=== PATIENT | female | born 1955 | race Caucasian/White ===

== ENCOUNTER 2022-03-02 11:01 | Inpatient (IN) | payer MEDICARE, BC ==
[~2022-03-02] VITALS: Ht 170.2 cm; Wt 76.2 kg
[~2022-03-02 11:01] MED LIST: ENAL5TAB85 PO; LEVO25TA50 PO
[2022-03-02] MEDS ORDERED: iohexol 350MG/ML 100ml bottle IV ONE (11:53)
--- NOTE | 2022-03-02 12:05 | NUR ---
PT TO CT
[2022-03-02 12:06] LABS: BASOPHILS # (AUTO) 0.1 X10'3 (0-0.2); BASOPHILS % (AUTO) 0.7 % (0-1); EOSINOPHILS # (AUTO) 0.1 X10'3 (0-0.9); EOSINOPHILS % (AUTO) 0.9 % (0-6); HEMATOCRIT 43.6 % (35.0-45.0); HEMOGLOBIN 14.8 g/dl (12.0-16.0); LYMPHOCYTES # (AUTO) 2.1 X10'3 (1.1-4.8); LYMPHOCYTES % (AUTO) 24.9 % (21-51); MEAN CORPUSCULAR HEMOGLOBIN 32.5 PG (27.0-31.0); MEAN CORPUSCULAR VOLUME 95.4 FL (78-98); MEAN PLATELET VOLUME 7.3 FL (7.4-10.4); MONOCYTES # (AUTO) 0.5 X10'3 (0-0.9); MONOCYTES % (AUTO) 6.4 % (2-12); NEUTROPHILS # (AUTO) 5.5 X10'3 (1.8-7.7); NEUTROPHILS % (AUTO) 67.1 % (42-75); PLATELET COUNT 205 X10'3 (140-440); RED BLOOD COUNT 4.57 X10'6 (4.20-5.60); RED CELL DISTRIBUTION WIDTH 13.1 % (11.5-14.5); WHITE BLOOD COUNT 8.3 X10'3 (4.5-11.0)
[2022-03-02] MEDS ORDERED: aspirin 81mg tab.chew PO ONE (12:10)
[2022-03-02 12:16] LABS: UA COLLECTION TYPE CLN CATCH MIDSTREAM
[2022-03-02 12:17] LABS: CLARITY,URINE CLEAR (Clear); COLOR,URINE YELLOW (Yellow); GLUCOSE, URINE NEGATIVE (Neg); KETONES,URINE NEGATIVE (Neg); LEUKOCYTE ESTERASE ,URINE NEGATIVE (Neg); NITRITES, URINE NEGATIVE (Neg); OCCULT BLOOD,URINE TRACE-INTACT (Neg); PROTEIN,URINE NEGATIVE (Neg); UROBILINOGEN,URINE 0.2 E.U/dL (0.2-1.0)
--- NOTE | 2022-03-02 12:18 | NUR ---
BACK FROM CT
[2022-03-02 12:19] LABS: URINE AMPHETAMINE SCREEN NEGATIVE (Neg); URINE BARBITUATE SCREEN NEGATIVE (Neg); URINE BENZODIAZEPINES SCREEN NEGATIVE (Neg); URINE CANNABINOID SCREEN POSITIVE (Neg); URINE COCAINE SCREEN NEGATIVE (Neg); URINE METHADONE SCREEN NEGATIVE (Neg); URINE OPIATE SCREEN NEGATIVE (Neg); URINE PHENCYCLIDINE SCREEN NEGATIVE (Neg)
--- NOTE | 2022-03-02 12:24 | NUR ---
PT BACK FROM XRAY
[2022-03-02 12:27] LABS: ALANINE AMINOTRANSFERASE 29 U/L (12-78); ALBUMIN 3.9 G/DL (3.4-5.0); ALBUMIN/GLOBULIN RATIO 1.1 (1.1-1.5); ALKALINE PHOSPHATASE 68 IU/L (46-116); ANION GAP 10 (8-16); ASPARTATE AMINO TRANSFERASE 13 U/L (10-37); BILIRUBIN,TOTAL 1.2 MG/DL (0.1-1.0); BLOOD UREA NITROGEN 16 MG/DL (7-18); BUN/CREATININE RATIO 18.2 (6.6-38.0); CALCIUM 8.9 MG/DL (8.5-10.1); CHLORIDE 105 MMOL/L (99-107); CREATININE 0.88 MG/DL (0.40-0.90); GLUCOSE 165 MG/DL (70-104); POTASSIUM 3.7 MMOL/L (3.5-5.1); SODIUM 140 MMOL/L (135-145); TOTAL CARBON DIOXIDE 25.2 MMOL/L (24-32); TOTAL PROTEIN 7.3 G/DL (6.4-8.2); eGFR 64 ML/MIN
[2022-03-02 12:44] LABS: BACTERIA,URINE FEW /HPF (Neg); RBC,URINE 0-2 /HPF (0-2); SQUAMOUS EPITHELIAL CELL,UR FEW /LPF (FEW); WBC,URINE NONE SEEN /HPF (0-4)
[2022-03-02 12:45] LABS: MUCUS STRANDS FEW /LPF (Neg)
[2022-03-02] MEDS ORDERED: hydrALAZINE 20mg/ml inj. IV ONE (15:30)
[2022-03-02] MEDS ORDERED: ATOR40TA PO (18:50)
[2022-03-02] MEDS ORDERED: LOP25T PO (18:52)
[2022-03-02] MEDS ORDERED: mag hydrox/Alum hydrox/simeth 30ml oral suspension PO PRN (20:05)
[2022-03-02] MEDS ORDERED: ondansetron/PF 4mg/2ml inj IV PRN (20:05)
[2022-03-02] MEDS ORDERED: clopidogrel 300mg tablet PO ONE (20:05)
[2022-03-02] MEDS ORDERED: acetaminophen 325mg tablet PO PRN (20:05)
[2022-03-02] MEDS ORDERED: magnesium 2GM in 50ml NS 50 ML IV PRN (20:05)
[2022-03-02] MEDS ORDERED: POTASSIUM BICARB 20meq eff tab 20 MEQ TABLET.EFF PO PRN ×2 (20:05)
[2022-03-02] MEDS ORDERED: magnesium 4gm in 100ml NS 100 ML IV PRN (20:05)
[2022-03-02] MEDS ORDERED: potassium CL 10mEq/100ml bag 100 ML IV PRN (20:05)
[2022-03-02] MEDS ORDERED: OMEP40CA21 PO (23:06)
[2022-03-03] MEDS ORDERED: Melatonin 3mg tablet PO PRN (00:05)
--- NOTE | 2022-03-03 07:39 | NUR ---
PATIENT NO ACUTE DISTRESS AT THIS TIME. DENIES PAIN OR DISCOMFORT
--- NOTE | 2022-03-03 07:40 | NUR ---
LAB AT BEDSIDE
[2022-03-03 07:54] LABS: BASOPHILS % (AUTO) 0.4 % (0-1); EOSINOPHILS # (AUTO) 0.1 X10'3 (0-0.9); HEMATOCRIT 43.1 % (35.0-45.0); HEMOGLOBIN 14.6 g/dl (12.0-16.0); LYMPHOCYTES # (AUTO) 2.4 X10'3 (1.1-4.8); LYMPHOCYTES % (AUTO) 26.8 % (21-51); MEAN CORPUSCULAR HEMOGLOBIN 32.2 PG (27.0-31.0); MEAN CORPUSCULAR HGB CONC 33.8 g/dL (33.0-36.5); MEAN PLATELET VOLUME 7.1 FL (7.4-10.4); MONOCYTES # (AUTO) 0.8 X10'3 (0-0.9); MONOCYTES % (AUTO) 8.7 % (2-12); NEUTROPHILS # (AUTO) 5.7 X10'3 (1.8-7.7); NEUTROPHILS % (AUTO) 63.1 % (42-75); PLATELET COUNT 187 X10'3 (140-440); RED BLOOD COUNT 4.54 X10'6 (4.20-5.60); RED CELL DISTRIBUTION WIDTH 13.2 % (11.5-14.5)
[2022-03-03] MEDS: levoTHYROXINE 25mcg tablet PO SCH (07:59)
[2022-03-03] MEDS: K and/or MAG REPLACEMENT MC SCH ×2 (08:00→20:35)
[2022-03-03] MEDS ORDERED: LORazepam 2 mg/ml vial IV ONE (08:05)
--- NOTE | 2022-03-03 08:08 | NUR ---
PHYSICIAN CONTACTED, DR. GUAJARDO ADVISED 0.5MG ATIVAN TO BE ADMINISTERED FOR MRI PROCEDURE
[2022-03-03 08:11] LABS: ALANINE AMINOTRANSFERASE 27 U/L (12-78); ALBUMIN 3.9 G/DL (3.4-5.0); ALBUMIN/GLOBULIN RATIO 1.1 (1.1-1.5); ALKALINE PHOSPHATASE 65 IU/L (46-116); ANION GAP 11 (8-16); ASPARTATE AMINO TRANSFERASE 16 U/L (10-37); BILIRUBIN,TOTAL 1.1 MG/DL (0.1-1.0); BLOOD UREA NITROGEN 12 MG/DL (7-18); BUN/CREATININE RATIO 17.4 (6.6-38.0); CALCIUM 9.1 MG/DL (8.5-10.1); CHLORIDE 106 MMOL/L (99-107); CHOLESTEROL 193 MG/DL (0-200); CREATININE 0.69 MG/DL (0.40-0.90); GLUCOSE 116 MG/DL (70-104); HDL CHOLESTEROL 48 MG/DL (35-60); LDL CHOLESTEROL 112 MG/DL (50-100); MAGNESIUM 1.9 MG/DL (1.5-2.4); POTASSIUM 3.9 MMOL/L (3.5-5.1); SODIUM 142 MMOL/L (135-145); TOTAL CARBON DIOXIDE 24.6 MMOL/L (24-32); TOTAL PROTEIN 7.4 G/DL (6.4-8.2); TRIGLYCERIDES 150 MG/DL (20-135); eGFR 85 ML/MIN
[2022-03-03] MEDS: atorvastatin 20mg tablet PO SCH (08:19)
[2022-03-03] MEDS: pantoprazole 40mg Tablet.DR PO SCH (08:19)
[2022-03-03] MEDS: aspirin 81mg, enteric-coated 1 TAB TABLET.DR PO SCH (08:19)
[2022-03-03] MEDS: docusate sod 100mg capsule PO SCH ×2 (08:19→20:33)
[2022-03-03] MEDS: clopidogrel 75mg tablet PO SCH (08:19)
[2022-03-03] MEDS: metoprolol tartrate 25mg tablet PO SCH ×2 (08:27→20:33)
[2022-03-03] MEDS ORDERED: amLODIPine 5mg tablet PO ONE (09:55)
[2022-03-03] MEDS ORDERED: lisinopril 10 MG tablet PO ONE (09:55)
--- NOTE | 2022-03-03 12:20 | NUR ---
Pt given lunch tray, tolerated well,no acute distress noted.
--- NOTE | 2022-03-03 14:09 | NUR ---
Dr Granda made aware of BP 173/93. No new orders at this time.
[2022-03-03] MEDS ORDERED: HYDROchlorothiazide 25mg tablet PO ONE (14:50)
[2022-03-03] MEDS ORDERED: hydrALAZINE 20mg/ml inj. IV PRN (14:50)
--- NOTE | 2022-03-03 15:00 | NUR ---
Pt awake in bed, no acute distress noted.
--- NOTE | 2022-03-03 17:40 | NUR ---
Report given to Rasheeda
--- NOTE | 2022-03-03 17:47 | NUR ---
3012B .Julián Tamayo. Pt coming up from ED acute CVA not sure if stroke RN has seen yet. Nicolette @[phone] Addendum: 03/03/22 at 1752 by Nicolette Wright RN page to stroke FELY - Elizabeth stroke FELY called back and said she would see patient paul
--- NOTE | 2022-03-03 17:58 | NUR ---
got report from Jennifer GEIGER
--- NOTE | 2022-03-03 17:59 | NUR ---
pt oriented to room and call light - tele on pt in SR with multifocal PVC BP 150/72 , HR 69, 96% on Room Air , 0/10 pain. Patient appears stable. Will give report to oncoming RN
[2022-03-03 18:00] VITALS: BP 150/72
--- NOTE | 2022-03-03 18:21 | NUR ---
Problems reprioritized. Patient report given, questions answered & plan of care reviewed with Layton RN. Patient resting in bed in no acute distress
[2022-03-03] MEDS ORDERED: Melatonin 3mg tablet PO SCH (21:00)
[2022-03-03 22:00] VITALS: BP 139/71
[2022-03-04 02:00] VITALS: BP 144/82
[2022-03-04 06:00] VITALS: BP_SYST 132; BP_SYST 172; BP_DIAS 86; BP_DIAS 88
--- NOTE | 2022-03-04 06:42 | NUR ---
Patient in room PCU 3012. I have received report from FELY Traylor and had the opportunity to ask questions and assume patient care.
[2022-03-04 06:48] LABS: BASOPHILS % (AUTO) 0.4 % (0-1); EOSINOPHILS # (AUTO) 0.1 X10'3 (0-0.9); EOSINOPHILS % (AUTO) 1.4 % (0-6); HEMATOCRIT 46.6 % (35.0-45.0); HEMOGLOBIN 15.9 g/dl (12.0-16.0); LYMPHOCYTES # (AUTO) 2.7 X10'3 (1.1-4.8); LYMPHOCYTES % (AUTO) 28.4 % (21-51); MEAN CORPUSCULAR HEMOGLOBIN 32.6 PG (27.0-31.0); MEAN CORPUSCULAR HGB CONC 34.1 g/dL (33.0-36.5); MEAN CORPUSCULAR VOLUME 95.7 FL (78-98); MEAN PLATELET VOLUME 7.4 FL (7.4-10.4); MONOCYTES # (AUTO) 0.8 X10'3 (0-0.9); MONOCYTES % (AUTO) 8.7 % (2-12); NEUTROPHILS # (AUTO) 5.7 X10'3 (1.8-7.7); NEUTROPHILS % (AUTO) 61.1 % (42-75); PLATELET COUNT 212 X10'3 (140-440); RED BLOOD COUNT 4.87 X10'6 (4.20-5.60); WHITE BLOOD COUNT 9.4 X10'3 (4.5-11.0)
[2022-03-04 06:59] LABS: ALANINE AMINOTRANSFERASE 29 U/L (12-78); ALKALINE PHOSPHATASE 68 IU/L (46-116); ANION GAP 8 (8-16); ASPARTATE AMINO TRANSFERASE 21 U/L (10-37); BLOOD UREA NITROGEN 11 MG/DL (7-18); BUN/CREATININE RATIO 14.9 (6.6-38.0); CALCIUM 9.4 MG/DL (8.5-10.1); CHLORIDE 105 MMOL/L (99-107); CREATININE 0.74 MG/DL (0.40-0.90); GLUCOSE 117 MG/DL (70-104); SODIUM 144 MMOL/L (135-145); TOTAL CARBON DIOXIDE 30.7 MMOL/L (24-32); TOTAL PROTEIN 7.9 G/DL (6.4-8.2); eGFR 79 ML/MIN
[2022-03-04 08:00] VITALS: BP_SYST 132
[2022-03-04] MEDS ORDERED: amLODIPine 5mg tablet PO SCH (08:00)
[2022-03-04] MEDS ORDERED: lisinopril 20mg tablet PO SCH (08:00)
[2022-03-04] MEDS ORDERED: HYDROchlorothiazide 25mg tablet PO SCH (08:00)
[2022-03-04] MEDS: K and/or MAG REPLACEMENT MC SCH (08:00)
[2022-03-04] MEDS: metoprolol tartrate 25mg tablet PO SCH (08:00)
[2022-03-04] MEDS: levoTHYROXINE 25mcg tablet PO SCH (08:00)
[2022-03-04] MEDS: docusate sod 100mg capsule PO SCH (08:24)
[2022-03-04] MEDS: aspirin 81mg, enteric-coated 1 TAB TABLET.DR PO SCH (08:24)
[2022-03-04] MEDS: pantoprazole 40mg Tablet.DR PO SCH (08:24)
[2022-03-04] MEDS: atorvastatin 20mg tablet PO SCH (08:25)
[2022-03-04] MEDS: clopidogrel 75mg tablet PO SCH (08:26)
[2022-03-04] MEDS ORDERED: lisinopril 10 MG tablet PO ONE (08:30)
[2022-03-04] MEDS ORDERED: NOR5T PO (11:52)
[2022-03-04] MEDS ORDERED: ATOR80TA PO (11:52)
[2022-03-04] MEDS ORDERED: CLOP75TA34 PO (11:52)
[2022-03-04] MEDS ORDERED: ASPI-1071 PO (11:52)
[2022-03-05] MEDS ORDERED: lisinopril 20mg tablet PO SCH (08:00)
--- NOTE | 2022-03-16 14:00 | NUR ---
Case Management DC follow up: Left VM with name ,telephone number, and reason for call.
== END 2022-03-04 14:18 | disposition home or self-care (01) | DRG 66 ==
LOC: ER 11:02 → ED HOLD 20:10 → PCU 3S 03-03 17:50
PROVIDERS: ADMIT Family Medicine; ATTEND Family Medicine
PROC: B3251ZZ Computerized Tomography (CT Scan) of Bilateral Common Carotid Arteries using Low Osmolar Contrast (ICD-10-PCS; principal; 2022-03-02)
PROC: B32G1ZZ Computerized Tomography (CT Scan) of Bilateral Vertebral Arteries using Low Osmolar Contrast (ICD-10-PCS; 2022-03-02)
PROC: B32R1ZZ Computerized Tomography (CT Scan) of Intracranial Arteries using Low Osmolar Contrast (ICD-10-PCS; 2022-03-02)
PROC: B3281ZZ Computerized Tomography (CT Scan) of Bilateral Internal Carotid Arteries using Low Osmolar Contrast (ICD-10-PCS; 2022-03-02)
DX: I63.89 Other cerebral infarction (principal); I67.1 Cerebral aneurysm, nonruptured; I10 Essential (primary) hypertension; R29.701 NIHSS score 1; E78.00 Pure hypercholesterolemia, unspecified; G83.24 Monoplegia of upper limb affecting left nondominant side; E78.5 Hyperlipidemia, unspecified; G47.33 Obstructive sleep apnea (adult) (pediatric); I16.0 Hypertensive urgency; F12.90 Cannabis use, unspecified, uncomplicated; Z20.822 Contact with and (suspected) exposure to COVID-19; E03.9 Hypothyroidism, unspecified; Z79.82 Long term (current) use of aspirin; Z82.49 Family history of ischemic heart disease and other diseases of the circulatory system; Z87.891 Personal history of nicotine dependence; Z88.0 Allergy status to penicillin; Z79.899 Other long term (current) drug therapy; Z98.51 Tubal ligation status; Z72.89 Other problems related to lifestyle; Z71.41 Alcohol abuse counseling and surveillance of alcoholic
CPT/HCPCS: 36415; 70450; 70496; 70498; 70551; 71045; 80053; 80061; 80305; 81001; 83735; 85025; 85610; 86885; 86900; 86901; 92508; 92616; 93005; 93306; 97116; 97161; 99285; G0378; J0360; J2060; Q9967

== ENCOUNTER 2025-05-21 09:01 | Day surgery (SDC) | payer MEDICARE, OTHER ==
[2025-05-17 13:23] LABS: MEAN PLATELET VOLUME 7.1 FL (7.4-10.4); PRE OP HEMATOCRIT 42.8 % (35.0-45.0); PRE OP HEMOGLOBIN 14.7 g/dL (12.0-16.0); PRE OP PLATELET COUNT 230 X10'3 (140-440); PRE OP WHITE BLOOD COUNT 10.7 10'3 (4.8-10.8); RED CELL DISTRIBUTION WIDTH 13.3 % (11.5-14.5)
--- NOTE | 2025-05-17 13:24 | ELECTROCARDIOGRAPH REPORT ---
[facility] Test Date: 2025-05-17 Test Time: 13:21:22 Pat Name: JACOB LIN Department: [facility]-PRE-OP Patient ID: [id number] Room: Gender: F Vp Patient: LALY : 1955 Requested By: KAYDEN DAVIDSON Order Number: [id number] Reading MD: Dr. Rebeka Ricketts Measurements Intervals [place] Rate: 57 P: 24 PA: 172 QRS: 59 QRSD: 96 T: 59 QT: 429 QTc: 418 Interpretive Statements Sinus bradycardia Ventricular premature complex Electronically Signed On 05-21-2025 7:04:[address] Rebeka Ricketts Please click the below link to view image of tracing.
[2025-05-17 13:40] LABS: CREATININE 0.94 MG/DL (0.40-0.90); PRE OP ALT 34 U/L (30-65); PRE OP ANION GAP 9 (8-16); PRE OP AST 19 U/L (10-37); PRE OP BILIRUB, TOTAL 1.1 MG/DL (0.0-1.0); PRE OP GLUCOSE 116 MG/DL (70-104); PRE OP POTASSIUM 4.1 MMOL/L (3.4-5.1); PRE OP SODIUM 145 MMOL/L (135-145); TOTAL CARBON DIOXIDE 29.1 MMOL/L (24-32); eGFR 59 ML/MIN
[~2025-05-21] VITALS: Ht 170.2 cm; Wt 87.0 kg
[2025-05-21] VITALS (9 sets, daily range): BP systolic 85–148; BP diastolic 48–68; PULSE 49–52; RESP 14–19; TEMP 97.8; O2SAT 93–96
[2025-05-21] MEDS: DOCUMENT DATE & TIME OF BETA-BLOCKER PO ONE (08:30)
[~2025-05-21 09:01] MED LIST changes: +ALEN35TA53 PO; +AMLO5TAB16; +ATOR-2 PO; +BUPIVAcaine/PF 2.5mg/ml (0.25%) 10ml vial ONE; +FURO40TA4 PO; -LEVO25TA50 PO; +LEVO25TA7 PO; +LIDOcaine 2% (20mg/ml) 5ml vial ONE; +LOP25T PO; +POTA-206 PO; +ceFAZolin 2gm/dext,iso 50mL 50 ML IV ONE
[2025-05-21] MEDS: ringers solution, lacted 1,000 ML IV SCH (09:53)
[2025-05-21] MEDS ORDERED: midazolam 1 mg/ML 2ml injection ONE (10:11)
[2025-05-21] MEDS ORDERED: fentaNYL/PF 50MCG/1 ML 2ML syringe ONE (10:11)
[2025-05-21] MEDS ORDERED: propofol inj 20 ML IV ONE (10:15)
[2025-05-21] MEDS: LIDOcaine 2% (20 mg/ml) 5ml cardiac syringe IJ ONE (10:18)
[2025-05-21] MEDS: BUPIVAcaine/PF 2.5mg/ml (0.25%) 10ml vial IJ ONE (10:18)
--- NOTE | 2025-05-21 14:00 | OPERATIVE REPORT ---
Operative Report Providers to ~ Date of Procedure: May 21, 2025 Pre-Operative Diagnosis: Left thumb trigger thumb Post-Operative Diagnosis SAME as PRE-Op Procedure Performed Incision tendon sheath left thumb A1 elio Surgeon: Marco Navas MD Angiographer None Anesthesiologist: Javier Palacios Type of Anesthesia: Other (Local) Findings: Estimated Blood Loss: None Specimen Removed: None Description of Procedure: The patient is a 69-year-old with a chronic trigger thumb refractory to nonsurgical treatment surgery is indicated to relieve symptoms. Risks and benefits were discussed with the patient and she agreed to proceed. She was brought to the operating room where the arm was prepped and draped in usual manner. Local anesthetic was infiltrated proximal to the volar thumb area and the tourniquet was inflated on the forearm. A transverse incision was made over the thumb crease and this was done just through skin to protect the digital nerves. The nerves were identified and retracted the A1 elio was the identified as well and then incised in its midline. The tendon was inspected a nd noted to be free of any lesions. The incision was irrigated and closed with nylon suture. A sterile dressing was applied and the tourniquet was released. The hand perfused well and she was taken to the recovery room in stable condition and tolerated the procedure well MARCO NAVAS Jr., MD May 21, 2025 14:00
== END 2025-05-21 11:49 | disposition home or self-care (01) ==
LOC: PAS 09:01
PROVIDERS: ATTEND Orthopaedic Surgery Hand Surgery
DX: M65.312 Trigger thumb, left thumb (principal); I49.3 Ventricular premature depolarization; I10 Essential (primary) hypertension; E03.9 Hypothyroidism, unspecified; J44.9 Chronic obstructive pulmonary disease, unspecified; G47.33 Obstructive sleep apnea (adult) (pediatric); Z86.73 Personal history of transient ischemic attack (TIA), and cerebral infarction without residual deficits; Z87.891 Personal history of nicotine dependence; Z79.890 Hormone replacement therapy; Z79.899 Other long term (current) drug therapy; Z98.890 Other specified postprocedural states; Z88.0 Allergy status to penicillin
CPT/HCPCS: 26055; 36415; 80053; 82948; 85025; 93005; A4215; A6449; J2003; J2250; J2704; J3010; J3490; J7030; J7120; Z7506; Z7512